=== PATIENT | female | born 1980 ===

== ENCOUNTER 2021-02-28 02:10 | Inpatient (IN) | payer OTHER ==
--- NOTE | 2021-02-28 02:57 | Emergency Department Report ---
ED General Adult HPI - General Chief complaint: Chest Pain Stated complaint: CHEST/BACK/ABD PAIN Time Seen by Provider: 02/28/21 02:37 Source: patient Mode of arrival: Ambulatory Limitations: No Limitations - History of Present Illness Initial comments: 40-year-old female with asthma department complaining of pain to the to the epigastric region and left flank region for the last 4 days started on a trip that she went down to [place]. She reports no traumatic events no no culprit currently sleeping symptoms. Ports no fever, chills, sweats, no hemoptysis no hematemesis hematochezia, no nausea, no vomiting. Pain is sharp in nature Radiation: non-radiation Quality: aching, dull Improves with: none Worsens with: none Treatments Prior to Arrival: none - Related Data Allergies Allergy/AdvReac Type Severity Reaction Status Date / Time No Known Allergies Allergy Verified 02/28/21 02:30 ED Review of Systems ROS: Stated complaint: CHEST/BACK/ABD PAIN Other details as noted in HPI Comment: All other systems reviewed and negative ED Past Medical Hx - Past Medical History Previous Medical History?: Yes Hx Asthma: Yes - Surgical History Past Surgical History?: Yes Additional Surgical History: hernia repair x 2, Tubal ligation - Social History Smoking Status: Current Every Day Smoker Substance Use Type: None ED Physical Exam - General Limitations: No Limitations General appearance: alert, in no apparent distress - Head Head exam: Present: atraumatic, normocephalic - Eye Eye exam: Present: normal appearance - ENT ENT exam: Present: mucous membranes moist - Neck Neck exam: Present: normal inspection - Respiratory Respiratory exam: Present: normal lung sounds bilaterally. Absent: respiratory distress - Cardiovascular Cardiovascular Exam: Present: regular rate, normal rhythm. Absent: systolic murmur, diastolic murmur, rubs, gallop - GI/Abdominal GI/Abdominal exam: Present: soft, tenderness (To the epigastric region with palpation), normal bowel sounds - Extremities Exam Extremities exam: Present: normal inspection - Back Exam Back exam: Present: normal inspection - Neurological Exam Neurological exam: Present: alert, oriented X3 - Psychiatric Psychiatric exam: Present: normal affect, normal mood - Skin Skin exam: Present: warm, dry, intact, normal color. Absent: rash ED Course Vital Signs 02/28/21 02:19 Temperature 98.4 F Pulse Rate 74 Respiratory 16 Rate Blood Pressure 134/67 O2 Sat by Pulse 98 Oximetry - Consultations Consultation #1: 02/28/21 06:48 Case was discussed with attending Dr. Pagan who is aware of the findings and agrees with the need for admission. ED Medical Decision Making - Lab Data Result diagrams: 02/28/21 02:56 02/28/21 02:56 - EKG Data EKG shows normal: sinus rhythm Rate: normal - EKG Data When compared to previous EKG there are: no significant change Interpretation: normal EKG 02/28/21 02:46 EKG was taken at 213 and was read at 216 - Radiology Data Radiology results: report reviewed [facility] [address] [place] [address] Cat Scan Report Signed Patient: GAURAV CHANG MR#: [id number] : 1980 Acct:[id number] Age/Sex: 40 / F ADM Date: 02/28/21 Loc: ED Attending Dr: Ordering Physician: KRISTOFER CROWE Date of Service: 02/28/21 Procedure(s): CT abdomen pelvis w con Accession Number(s): [id number] cc: KRISTOFER CROWE CT ABDOMEN AND PELVIS WITH IV CONTRAST INDICATION: Pt complains of epigastric and LEFT sided flank pain x 4 days. COMPARISON: None available. TECHNIQUE: Axial CT images were obtained through the abdomen and pelvis after 100 mL IV contrast. All CT scans at this location are performed using CT dose reduction for ALARA by means of automated exposure control. FINDINGS -- ABDOMEN: Lung Bases: No acute abnormality. Liver: Normal. Gallbladder: Normal. Bile Ducts: Normal. Pancreas: The tail the pancreas appears abnormal and is edematous. No pancreatic pseudocyst or collection identified. Spleen: Normal. Adrenals: Normal. Right Kidney and Proximal Ureter: Normal. Left Kidney and Proximal Ureter: Normal. Stomach and Bowel: Normal. Lymph Nodes: No significant adenopathy. Aorta: No significant abnormality. IVC: Normal. Additional Findings: None. FINDINGS -- PELVIS: Urinary Bladder and Distal Ureters: Normal. Reproductive Organs: Multiple small ovarian cysts. Appendix: Difficult to visualize but grossly unremarkable without p eriappendiceal inflammation.. Bowel: No acute abnormality. Free Fluid: None. Lymph Nodes: No significant adenopathy. Additional Findings: None. Skeletal System: No acute abnormality. IMPRESSION: Acute interstitial pancreatitis. No pseudocyst identified. Signer Name: Luis E Purvis MD Signed: 02/28/2021 6:14 AM Workstation Name: [id number] Transcribed By: PRITI Dictated By: Luis E Purvis MD Electronically Authenticated By: Luis E Purvis MD Signed Date/Time: 02/28/21613 DD/ 0 TD/TT: Print - Medical Decision Making This 40-year-old female presents emergency department with a 4 to 5-day history of abdominal pain to the epigastric region with nausea but no vomiting. Her examination did yield some tenderness to the epigastric region and her laboratory data did did show a elevated lipase around 1100. CT scan was obtained and showed no infectious processes any blockages or any malignancies. The patient does not have any significant risk factors. I have discussed discussed with the patient the findings of her examination and imaging as well as laboratory tests ankle explained the need for admission for which she does agree. Case was discussed with the hospitalist who agrees to admit or passing out to the oncoming doctor. She remained stable throughout the ED visit thus far pain significantly reduced with the medications that were provided she is alert and oriented x3 no distress she has been advised n.p.o. status. Critical care attestation.: If time is entered above; I have spent that time in minutes in the direct care of this critically ill patient, excluding procedure time. ED Disposition Clinical Impression: Pancreatitis Disposition: ADMITTED INPATIENT Is pt being admited?: Yes Does the pt Need Aspirin: No Condition: Stable
[2021-02-28 03:24] LABS: Basophils # (Auto) 0.1 K/mm3 (0.0-0.1); Basophils % (Auto) 0.6 % (0.0-1.8); Eosinophils # (Auto) 0.2 K/mm3 (0.0-0.4); Eosinophils % (Auto) 1.8 % (0.0-4.3); Hematocrit 37.1 % (30.3-42.9); Hemoglobin 12.6 gm/dl (10.1-14.3); Mean Corpuscular HGB Conc 34 % (30-34); Mean Corpuscular Volume 88 fl (79-97); Monocytes # (Auto) 0.6 K/mm3 (0.0-0.8); Monocytes % (Auto) 4.7 % (0.0-7.3); Platelet Count 421 K/mm3 (140-440); Red Blood Count 4.21 M/mm3 (3.65-5.03); Red Cell Distribution Width 13.5 % (13.2-15.2)
[2021-02-28 03:49] LABS: Alanine Aminotransferase 7 units/L (7-56); Albumin 4.3 g/dL (3.9-5); BUN/Creatinine Ratio 12; Blood Urea Nitrogen 11 mg/dL (7-17); Calcium 9.9 mg/dL (8.4-10.2); Hemolysis Index 7
--- NOTE | 2021-02-28 04:26 | XRay Report ---
CHEST 2 VIEWS INDICATION / CLINICAL INFORMATION: Chest Pain. FINDINGS: SUPPORT DEVICES: None. HEART / MEDIASTINUM: No significant abnormality. LUNGS / PLEURA: No significant pulmonary or pleural abnormality. No pneumothorax. ADDITIONAL FINDINGS: No significant additional findings. IMPRESSION: 1. No acute findings. Signer Name: Luis E Purvis MD Signed: 02/28/2021 4:22 AM Workstation Name: [id number]
[2021-02-28] MEDS ORDERED: SODIUM CHLORIDE 0.9% 1000 ML 1,000 ML IV ONE (04:52)
[2021-02-28] MEDS ORDERED: ONDANSETRON 4 MG/2 ML INJ IV ONE (04:52)
[2021-02-28] MEDS ORDERED: MORPHINE 4 MG/1 ML INJ IV ONE (04:52)
[2021-02-28] MEDS ORDERED: SODIUM CHLORIDE 0.9% 1000 ML 1,000 ML ONE (04:54)
[2021-02-28] MEDS ORDERED: MORPHINE 4 MG/1 ML INJ ONE (04:54)
[2021-02-28] MEDS ORDERED: ONDANSETRON 4 MG/2 ML INJ ONE (04:54)
--- NOTE | 2021-02-28 06:19 | Cat Scan Report ---
CT ABDOMEN AND PELVIS WITH IV CONTRAST INDICATION: Pt complains of epigastric and LEFT sided flank pain x 4 days. COMPARISON: None available. TECHNIQUE: Axial CT images were obtained through the abdomen and pelvis after 100 mL IV contrast. All CT scans a t this location are performed using CT dose reduction for ALARA by means of automated exposure contro l. FINDINGS -- ABDOMEN: Lung Bases: No acute abnormality. Liver: Normal. Gallbladder: Normal. Bile Ducts: Normal. Pancreas: The tail the pancreas appears abnormal and is edematous. No pancreatic pseudocyst or collec tion identified. Spleen: Normal. Adrenals: Normal. Right Kidney and Proximal Ureter: Normal. Left Kidney and Proximal Ureter: Normal. Stomach and Bowel: Normal. Lymph Nodes: No significant adenopathy. Aorta: No significant abnormality. IVC: Normal. Additional Findings: None. FINDINGS -- PELVIS: Urinary Bladder and Distal Ureters: Normal. Reproductive Organs: Multiple small ovarian cysts. Appendix: Difficult to visualize but grossly unremarkable without periappendiceal inflammation.. [place] el: No acute abnormality. Free Fluid: None. Lymph Nodes: No significant adenopathy. Additional Findings: None. Skeletal System: No acute abnormality. IMPRESSION: Acute interstitial pancreatitis. No pseudocyst identified. Signer Name: Luis E Purvis MD Signed: 02/28/2021 6:14 AM Workstation Name: [id number]
[2021-02-28] MEDS: HYDROmorphone 1 MG/1 ML INJ IV PRN (08:39)
[2021-02-28] MEDS ORDERED: hydrALAZINE 20 MG/1 ML INJ IV PRN (13:03)
[2021-02-28] MEDS ORDERED: HYDROcodone/ACETAMINOPHEN 5-325 MG TAB PO PRN (13:03)
[2021-02-28] MEDS ORDERED: ACETAMINOPHEN 325 MG TAB PO PRN (13:03)
[2021-02-28] MEDS ORDERED: LORazepam 2 MG/ML VIAL IV PRN (13:03)
--- NOTE | 2021-02-28 13:13 | History and Physical Report ---
History of Present Illness Date of examination: 03/07/21 Date of admission: 02/28/21 06:48 Chief complaint: Abdominal pain History of present illness: 40-year-old female with history of asthma and tobacco abuse presented to ER with complaining of pain to the to the epigastric region and left flank region for the last 4 days. Patient stated that the pain started following a trip to [place]. Patient denies any fever chills or sweats, she is fully vaccinated for COVID-19. She also reports that she ate in a restaurant at [place] and following that she started to have abdominal pain. Initially she thought that was for indigestion but since last night her pain has worsened. CT abdomen/pelvis Past Medical Hx - Past Medical History Previous Medical History?: Yes Hx Asthma: Yes - Surgical History Past Surgical History?: Yes Additional Surgical History: hernia repair x 2, Tubal ligation -Family history Hx hypertension: Yes - Social History Smoking Status: Current Every Day Smoker Substance Use Type: None Review of System: Constitutional: no fever, no chills, no weight loss Ears, eyes, nose, mouth and throat: no nasal congestion, no nasal discharge, no sinus pressure, no vision change, no red eye. Neck: No neck pain or rigidity. Cardiovascular: No chest pain, no orthopnea, no palpitations, no leg swelling Respiratory: No shortness of breath, no cough, no congestion, no wheezing Gastrointestinal: + abdominal pain, no nausea, no vomiting Genitourinary : no dysuria, no hematuria Musculoskeletal: no joint swelling or muscle ache Integumentary: no rash, no pruritis Neurological: no parathesias, no numbness, no tingling Endocrine: no cold or heat intolerance, no polyuria or polydipsia Hematologic/Lymphatic: no easy bruising, no easy bleeding, no gland swelling Allergic/Immunologic: no urticaria, no angioedema. Medications and Allergies Allergies Allergy/AdvReac Type Severity Reaction Status Date / Time No Known Allergies Allergy Verified 02/28/21 02:30 Home Medications Medication Instructions Recorded Confirmed Last Taken Type No Known Home Medications [No 03/01/21 03/01/21 Unknown History Reported Home Medications] Active Meds: Active Medications Acetaminophen (Acetaminophen 325 Mg Tab) 650 mg PO Q4H PRN PRN Reason: Pain MILD(1-3)/Fever >100.5/BOLES Hydrocodone Bitart/Acetaminophen (Hydrocodone/Acetaminophen 5-325 Mg Tab) 2 each PO Q6H PRN PRN Reason: Pain, Moderate (4-6) Heparin Sodium (Porcine) (Heparin 5,000 Unit/1 Ml Vial) 5,000 unit SUB-Q Q8HR MINH Hydralazine HCl (Hydralazine 20 Mg/1 Ml Inj) 5 mg IV Q30MIN PRN PRN Reason: Hypertension Hydromorphone HCl (Hydromorphone 1 Mg/1 Ml Inj) 1 mg IV Q4HR PRN PRN Reason: Pain, Moderate (4-6) Last Admin: 02/28/21 08:39 Dose: 1 mg Documented by: Dextrose/Sodium Chloride (D5ns) 1,000 mls @ 125 mls/hr IV DIRECT MINH Lorazepam (Lorazepam 2 Mg/Ml Vial) 2 mg IV Q4H PRN PRN Reason: Agitation Ondansetron HCl (Ondansetron 4 Mg/2 Ml Inj) 4 mg IV Q8H PRN PRN Reason: N/V unrelieved by Uyen Penaloza (Sennosides 8.6 Mg Tab) 8.6 mg PO Q12HR MINH Exam - Physical Exam Narrative exam: GENERAL: well-developed and well-nourished female lying on bed appeared to be in mild discomfort. HEENT: Normocephalic. Atraumatic. No conjunctival congestion or icterus. Patient has moist mucous membranes. NECK: Supple. Trachea midline. CHEST/LUNGS: Clear to auscultated bilaterally, breathing nonlabored. No wheezes crackles or rhonchi. HEART/CARDIOVASCULAR: Regular in rate and rhythm. S1 and S2 positive. ABDOMEN: Abdomen is soft, + epigastric tender. Patient has normal bowel sounds. SKIN: There is no rash. Warm and dry. NEURO: No focal motor deficit. Follows command. MUSCULOSKELETAL: No joint effusion or tenderness. EXTRIMITY: No edema, no cyanosis or clubbing. PSYCH: Cooperative. - Constitutional Vitals: Temp Pulse Resp BP Pulse Ox 98.4 F 74 16 134/67 98 02/28/21 02:19 02/28/21 02:19 02/28/21 02:19 02/28/21 02:19 02/28/21 02:19 HEART Score - HEART Score Troponin: Troponin T < 0.010 ng/mL (0.00-0.029) 02/28/21 02:56 Results - Labs CBC & Chem 7: 02/28/21 02:56 03/01/21 08:28 Labs: Abnormal lab results 02/28/21 02/28/21 Range/Units 02:56 02:56 WBC 12.4 H (4.5-11.0) K/mm3 Seg Neutrophils # 8.5 H (1.8-7.7) K/mm3 Glucose 149 H (65-100) mg/dL Lipase 1111 H (13-60) units/L - Imaging and Cardiology Chest x-ray: report reviewed (No infiltrates) CT scan - abdomen: report reviewed ( Acute interstitial pancreatitis) Assessment and Plan --Acute pancreatitis Admit to [facility], trend lipase level Continue one IV fluid hydration, consult GI As needed antiemetics and pain medications --Tobacco abuse history of, counseled for cessation --Leukocytosis, likely due to stress-induced --DVT prophylaxis
[2021-02-28] MEDS: HEPARIN 5,000 UNIT/1 ML VIAL SUB-Q SCH (16:27)
[2021-03-01] MEDS: SENNOSIDES 8.6 MG TAB PO SCH ×3 (01:00→22:28)
[2021-03-01] MEDS: HEPARIN 5,000 UNIT/1 ML VIAL SUB-Q SCH ×4 (01:00→22:27)
[2021-03-01] MEDS: D5W/0.9% NACL 1,000 ML IV SCH ×3 (01:42→16:51)
[2021-03-01] MEDS: HYDROmorphone 1 MG/1 ML INJ IV PRN ×3 (01:49→22:31)
[2021-03-01 09:57] LABS: Blood Urea Nitrogen 8 mg/dL (7-17); Calcium 8.6 mg/dL (8.4-10.2); Hemolysis Index 13
[2021-03-01 10:04] LABS: BUN/Creatinine Ratio 13
--- NOTE | 2021-03-01 11:46 | Electrocardiograph Report ---
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
--- NOTE | 2021-03-01 11:46 | Electrocardiograph Report ---
[facility] Test Date: 2021-02-28 Test Time: 03:25:53 Pat Name: GAURAV CHANG Department: Room: A376 Gender: F [place] Folder: : 1980 Requested By: LUKE PARRISH Order Number: [id number] Reading MD: Marcel Salmeron Measurements Intervals [place] Rate: 70 P: 64 NC: 199 QRS: 23 QRSD: 93 T: 59 QT: 400 QTc: 431 Interpretive Statements Sinus rhythm Compared to ECG 02/28/2021 02:13:14 No significant changes Electronically Signed On 03-01-2021 11:46:00 EDT by Marcel Salmeron
[2021-03-01] MEDS: ONDANSETRON 4 MG/2 ML INJ IV PRN ×2 (13:27→22:39)
--- NOTE | 2021-03-01 20:16 | Progress Note ---
Assessment and Plan --Acute pancreatitis Admit to [facility], trend lipase level Continue one IV fluid hydration, consult GI As needed antiemetics and pain medications --Tobacco abuse history of, counseled for cessation --DVT prophylaxis Subjective Date of service: 03/01/21 Objective - Constitutional Vitals: Vital Signs - 12hr 03/01/21 03/01/21 03/01/21 12:20 14:00 17:10 Temperature 98.1 F 98.2 F Pulse Rate 69 61 Respiratory 18 16 Rate Blood Pressure 140/77 132/79 O2 Sat by Pulse 98 100 100 Oximetry - Labs CBC & Chem 7: 02/28/21 02:56 03/01/21 08:28 Labs: Abnormal lab results 03/01/21 03/01/21 Range/Units 08:28 08:28 Glucose 115 H (65-100) mg/dL Lipase 298 H (13-60) units/L HEART Score - HEART Score Troponin: Troponin T < 0.010 ng/mL (0.00-0.029) 02/28/21 02:56
[2021-03-02] MEDS: HYDROmorphone 1 MG/1 ML INJ IV PRN (03:35)
[2021-03-02] MEDS: HEPARIN 5,000 UNIT/1 ML VIAL SUB-Q SCH ×2 (06:09→15:25)
[2021-03-02 06:11] VITALS: BP 120/70
--- NOTE | 2021-03-02 07:49 | Gastroenterology Consultation ---
History of Present Illness - Reason for Consult Consult date: 03/02/21 Pancreatitis Requesting physician: MARC UGALDE - History of Present Illness This is a pleasant 40-year-old female with history of asthma and tobacco use presented to ER with complaining of pain. Severe epigastric pain, sharp, duration days, improving, worse with eating, better with time and pain meds, associated with nausea; reports had 1 single drink the entire time she went to [place] on her trip. - Past Medical History Previous Medical History?: Yes Hx Asthma: Yes - Surgical History Past Surgical History?: Yes Additional Surgical History: hernia repair x 2, Tubal ligation - Social History Smoking Status: Current Every Day Smoker Substance Use Type: None Obtained/updated/reviewed patient's current medications Medications and Allergies Allergies Allergy/AdvReac Type Severity Reaction Status Date / Time No Known Allergies Allergy Verified 02/28/21 02:30 Home Medications Medication Instructions Recorded Confirmed Last Taken Type No Known Home Medications [No 03/01/21 03/01/21 Unknown History Reported Home Medications] Active Meds: Active Medications Acetaminophen (Acetaminophen 325 Mg Tab) 650 mg PO Q4H PRN PRN Reason: Pain MILD(1-3)/Fever >100.5/BOLSE Hydrocodone Bitart/Acetaminophen (Hydrocodone/Acetaminophen 5-325 Mg Tab) 2 each PO Q6H PRN PRN Reason: Pain, Moderate (4-6) Heparin Sodium (Porcine) (Heparin 5,000 Unit/1 Ml Vial) 5,000 unit SUB-Q Q8HR MINH Last Admin: 03/02/21 06:09 Dose: 5,000 unit Documented by: Hydralazine HCl (Hydralazine 20 Mg/1 Ml Inj) 5 mg IV Q30MIN PRN PRN Reason: Hypertension Hydromorphone HCl (Hydromorphone 1 Mg/1 Ml Inj) 1 mg IV Q4HR PRN PRN Reason: Pain, Moderate (4-6) Last Admin: 03/02/21 03:35 Dose: 1 mg Documented by: Dextrose/Sodium Chloride (D5ns) 1,000 mls @ 125 mls/hr IV DIRECT MINH Last Admin: 03/01/21 16:51 Dose: 125 mls/hr Documented by: Lorazepam (Lorazepam 2 Mg/Ml Vial) 2 mg IV Q4H PRN PRN Reason: Agitation Ondansetron HCl (Ondansetron 4 Mg/2 Ml Inj) 4 mg IV Q8H PRN PRN Reason: N/V unrelieved by Reglan Last Admin: 03/01/21 22:39 Dose: 4 mg Documented by: Tremaine (Sennosides 8.6 Mg Tab) 8.6 mg PO Q12HR [facility] Last Admin: 03/01/21 22:28 Dose: 8.6 mg Documented by: Review of Systems - Review of Systems All systems: negative (10 Systems reviewed and negative except as mentioned above in the history of present illness) Exam - Constitutional Vital Signs: Temp Pulse Resp BP Pulse Ox 97.9 F 72 18 120/70 100 03/02/21 06:10 03/02/21 06:10 03/02/21 06:10 03/02/21 06:10 03/02/21 06:10 General appearance: no acute distress - EENT Eyes: EOM intact - Neck Neck: supple - Respiratory Respiratory effort: normal - Cardiovascular Rhythm: regular - Gastrointestinal General gastrointestinal: Present: soft - Integumentary Integumentary: Present: dry - Musculoskeletal Musculoskeletal: normal - Neurologic Neurological: alert and oriented x3 - Psychiatric Psychiatric: appropriate mood/affect - Labs CBC & Chem 7: 02/28/21 02:56 03/01/21 08:28 Lab Results: Laboratory Results - last 24 hr 03/01/21 03/01/21 08:28 08:28 Sodium 140 Potassium 4.0 Chloride 105.5 Carbon Dioxide 24 Anion Gap 15 BUN 8 Creatinine 0.6 Estimated GFR > 60 BUN/Creatinine Ratio 13 Glucose 115 H Calcium 8.6 Lipase 298 H Assessment and Plan Unclear etiology for the pancreatitis, as EtOh based upon history would not be the source, and no evidence for gallstones. No new meds or OTC's nor trauma Rest of Ddx includes tobacco related - I told her to quite tobacco products - occult pancreatic mass, missed gallstone/sludge, hypertriglyceridemia As she is improving can DC with OPD followup to complete the eval - Patient Problems (1) Pancreatitis Status: Acute
[2021-03-02] MEDS: SENNOSIDES 8.6 MG TAB PO SCH (12:08)
[2021-03-02] MEDS: D5W/0.9% NACL 1,000 ML IV SCH (12:12)
--- NOTE | 2021-03-02 17:36 | Discharge Summary ---
Providers - Providers Date of Admission: 02/28/21 06:48 Date of discharge: 03/02/21 Attending physician: MARC UGALDE 03/01/21 10:28 Consult to Physician [CONS] Routine Comment: Consulting Provider: GENEVA TURK Physician Instructions: Reason For Exam: acute pancreatitis Primary care physician: NATURALIST Hospitalization Condition: Stable Disposition: 01 HOME / SELF CARE / HOMELESS Final Discharge Diagnosis (Prints w/discharge instructions): --Acute pancreatitis Core Measure Documentation - Palliative Care Palliative Care/ Comfort Measures: Not Applicable - Core Measures Any of the following diagnoses?: none Exam - Physical Exam Narrative exam: GENERAL: well-developed and well-nourished female lying on bed appe ared to be in mild discomfort. HEENT: Normocephalic. Atraumatic. No conjunctival congestion or icterus. Patient has moist mucous membranes. NECK: Supple. Trachea midline. CHEST/LUNGS: Clear to auscultated bilaterally, breathing nonlabored. No wheezes crackles or rhonchi. HEART/CARDIOVASCULAR: Regular in rate and rhythm. S1 and S2 positive. ABDOMEN: Abdomen is soft, + epigastric tender. Patient has normal bowel sounds. SKIN: There is no rash. Warm and dry. NEURO: No focal motor deficit. Follows command. MUSCULOSKELETAL: No joint effusion or tenderness. EXTRIMITY: No edema, no cyanosis or clubbing. PSYCH: Cooperative. - Constitutional Vitals: Temp Pulse Resp BP Pulse Ox 97.9 F 72 18 120/70 100 03/02/21 06:10 03/02/21 06:10 03/02/21 06:10 03/02/21 06:10 03/02/21 06:10 Plan Activity: advance as tolerated Weight Bearing Status: Weight Bear as Tolerated Diet: low fat, low salt Follow up with: PRIMARY CAREMD [Primary Care Provider] - 3-5 Days
== END 2021-03-02 19:13 | disposition home or self-care (01) | DRG 440 ==
LOC: ED 02:10 → 3A 06:48
PROVIDERS: ADMIT Hospitalist; ATTEND Internal Medicine
DX: K85.90 Acute pancreatitis without necrosis or infection, unspecified (principal); F17.200 Nicotine dependence, unspecified, uncomplicated; J45.909 Unspecified asthma, uncomplicated; Z98.51 Tubal ligation status; Z71.6 Tobacco abuse counseling; Z79.899 Other long term (current) drug therapy
CPT/HCPCS: 36415; 71046; 74177; 80048; 80053; 83690; 84484; 84703; 85025; 93005; 99406; G0378; J1170; J1644; J2270; J2405; J7030; J7042; Q9967